=== PATIENT | male | born 1980 | race Caucasian/White ===

== ENCOUNTER 2022-09-04 13:55 | Emergency (ER) | payer BC, OTHER ==
[2022-09-04 14:04] VITALS: BP 144/98; PULSE 84; RESP 16; TEMP 98.5; BMI 27.3
[2022-09-04] MEDS ORDERED: KETOROLAC TROMETHAMINE 60 MG/2 ML VIAL IM ONE (15:08)
[2022-09-04] MEDS ORDERED: hydrOXYzine PAMOATE 50 MG CAPSULE (FP) PO ONE (15:08)
[2022-09-04] MEDS ORDERED: hydrOXYzine PAMOATE 25 MG CAPSULE (FP) PO ONE (15:16)
[2022-09-04] MEDS ORDERED: KETOROLAC TROMETHAMINE 60 MG/2 ML VIAL ONE (15:16)
== END 2022-09-04 16:13 | disposition home or self-care (01) ==
LOC: FER 13:55
PROC: 3E023GC Introduction of Other Therapeutic Substance into Muscle, Percutaneous Approach (ICD-10-PCS; principal; 2022-09-04)
DX: S39.012A Strain of muscle, fascia and tendon of lower back, initial encounter (principal); V49.9XXA Car occupant (driver) (passenger) injured in unspecified traffic accident, initial encounter
CPT/HCPCS: 99284-25